=== PATIENT | female | born 1990 | race Caucasian/White ===

== ENCOUNTER 2022-10-04 08:40 | Day surgery (SDC) | payer BC, OTHER ==
[~2022-10-04 08:40] MED LIST: SODIUM CHLORIDE 0.9% 1,000 ML IV SCH
[2022-10-04 08:57] VITALS: BP 118/69; PULSE 97; RESP 18; TEMP 97.8
--- NOTE | 2022-10-04 11:05 | P.EPPROC ---
- EP Procedure Note Electrophysiology Procedure Note: Diagnosis Recurrent presyncope Twelve-lead EKG shows sinus mechanism normal [place] incomplete right bundle branch block pattern normal ST segments Tilt table test per protocol Baseline heart rate 74 beats a minute, Baseline blood pressure 119/77 mmHg Patient was tilted upright fingers 70 per protocol No significant change in in blood pressure Mild increase in heart rate to 140 beats a minute Patient had a brief episode of tachycardia up to 137 beats a minute. This quickly went back down to 95 beats a minute and thereafter remained in the 90s No symptoms thereafter During this episode she felt her heart was racing When she was laid supine, blood pressure remained stable heart rates went down to 74 beats a minute Impression Normal twelve-lead EKG at baseline 1 episode of tachycardia, spontaneous upto 137 beats a minute, brief, spontaneous resolution No evidence for neurocardiogenic syncope Possible mild orthostatic intolerance
== END 2022-10-04 10:23 | disposition home or self-care (01) ==
LOC: CATHEP 08:40
PROVIDERS: ATTEND Internal Medicine Clinical Cardiac Electrophysiology
DX: R00.0 Tachycardia, unspecified (principal); F90.9 Attention-deficit hyperactivity disorder, unspecified type; F41.9 Anxiety disorder, unspecified; G43.909 Migraine, unspecified, not intractable, without status migrainosus; B27.90 Infectious mononucleosis, unspecified without complication; D64.9 Anemia, unspecified; F10.90 Alcohol use, unspecified, uncomplicated; Z79.1 Long term (current) use of non-steroidal anti-inflammatories (NSAID); Z79.899 Other long term (current) drug therapy; Z87.891 Personal history of nicotine dependence; Z88.0 Allergy status to penicillin; Z88.1 Allergy status to other antibiotic agents; Z88.8 Allergy status to other drugs, medicaments and biological substances
CPT/HCPCS: 81025; 93660

== ENCOUNTER → 2024-05-08 | Outpatient (CLI) | payer OTHER ==
--- NOTE | 2024-05-08 14:02 | XR ---
EXAMINATION TYPE: XR lumbar spine 2 or 3V DATE OF EXAM: 05/08/2024 1:56 PM COMPARISON: None. CLINICAL INDICATION: Female, 33 years old with history of S33.5XXA SPRAIN OF LIGAMENTS OF LUMBAR SPIN E, INIT; TECHNIQUE: XR lumbar spine 2 or 3V views are submitted. FINDINGS: Alignment is anatomic. The pedicles are intact. The transverse processes are intact. There is no s pondylolisthesis. IMPRESSION: 1. No acute process. [facility], , 05/08/2024 2:00 PM
== END | disposition home or self-care (01) ==
LOC: RADXRMAIN 13:33
PROVIDERS: ATTEND Emergency Medicine
DX: S33.5XXA Sprain of ligaments of lumbar spine, initial encounter (principal); X58.XXXA Exposure to other specified factors, initial encounter
CPT/HCPCS: 72100

== ENCOUNTER → 2024-05-15 | Outpatient (CLI) | payer OTHER ==
--- NOTE | 2024-05-15 10:36 | XR ---
EXAMINATION TYPE: XR sacrum coccyx DATE OF EXAM: 05/15/2024 10:32 AM INDICATION: Patient age:Female; 33 years old; Reason for study: S33.5XXD strain lumbar spine; PHH. pain COMPARISON: Lumbar spine radiograph 05/08/2024 TECHNIQUE: The sacrum/coccyx was examined in 3 projections. FINDINGS: There is no evidence of fracture or dislocation. The SI joints are intact bilaterally. Ther e is no soft tissue abnormality. Pelvic phleboliths. IUD is present within the pelvis. IMPRESSION: No acute osseous pathology. [facility], , 05/15/2024 10:34 AM
== END | disposition home or self-care (01) ==
LOC: RADXRMAIN 10:06
PROVIDERS: ATTEND Emergency Medicine
DX: S33.5XXD Sprain of ligaments of lumbar spine, subsequent encounter (principal); S39.012A Strain of muscle, fascia and tendon of lower back, initial encounter
CPT/HCPCS: 72220

== ENCOUNTER → 2024-07-30 | Outpatient (CLI) | payer OTHER ==
[2024-07-30 11:01] LABS: ALT 55 U/L (8-44); AST 35 U/L (13-35); Albumin 4.4 g/dL (3.8-4.9); Albumin/Globulin Ratio 1.69 Ratio (1.60-3.17); Alkaline Phosphatase 66 U/L (41-126); BUN/Creat Ratio 15.86 Ratio (12.00-20.00); Blood Urea Nitrogen 11.1 mg/dL (9.0-27.0); Calcium 9.4 mg/dL (8.7-10.3); Carbon Dioxide 23.6 mmol/L (21.6-31.8); Chloride 104 mmol/L (96-109); Chol/HDL Ratio 4.17 Ratio; Globulin 2.6 g/dL (1.6-3.3); Glucose 97 mg/dL (70-110); LDL Cholesterol,Calculated 107.6 mg/dL (0.0-131.0); Potassium 4.1 mmol/L (3.5-5.5); Sodium 138 mmol/L (135-145); Total Bilirubin 0.4 mg/dL (0.3-1.2)
[2024-07-30 15:27] LABS: Basophils # (A) 0.03 X 10*3/uL (0.00-0.10); Basophils % (A) 0.5 %; Eosinophils # (A) 0.18 X 10*3/uL (0.04-0.35); HCT 38.8 % (37.2-46.3); HGB 13.4 g/dL (12.0-15.0); Lymphocytes # (A) 1.48 X 10*3/uL (0.90-5.00); MCH 30.8 pg (27.0-32.0); MCHC 34.5 g/dL (32.0-37.0); MCV 89.2 FL (80.0-97.0); Mean Platelet Volume 10.4 FL (9.5-12.2); Monocytes # (A) 0.54 X 10*3/uL (0.20-1.00); Monocytes % (A) 9.1 %; NRBC Per 100 WBC 0 X 10*3/uL (0.00-0.01); Neutrophils # (A) 3.65 X 10*3/uL (1.80-7.70); Neutrophils % (A) 61.9 %; Platelet Count 267 X 10*3/uL (140-440); RBC 4.35 X 10*6/uL (4.10-5.20); WBC 5.91 X 10*3/uL (4.50-10.00)
== END | disposition home or self-care (01) ==
LOC: LABWHC1 07:57
PROVIDERS: ATTEND Nurse Practitioner Family
DX: R74.01 Elevation of levels of liver transaminase levels (principal)
CPT/HCPCS: 36415; 80053; 80061; 85025